=== PATIENT | female | born 1975 | race Caucasian/White ===

== ENCOUNTER 2021-07-13 14:18 | Outpatient (REF) | payer OTHER, SELFPAY ==
[2021-07-13 14:25] VITALS: BP 121/74; PULSE 89; RESP 16; TEMP 36.1; O2SAT 97
[2021-07-13 14:26] VITALS: BMI 20.2
== END 2021-07-13 14:19 | disposition home or self-care (01) ==
LOC: HO.MS 14:18
PROVIDERS: Visit Provider Ophthalmology
PROC: (CPT 66821; principal; 2021-07-13 14:50)
DX: H26.491 Other secondary cataract, right eye (principal); Z96.1 Presence of intraocular lens; H11.133 Conjunctival pigmentations, bilateral; H17.89 Other corneal scars and opacities; Z79.899 Other long term (current) drug therapy; Z88.8 Allergy status to other drugs, medicaments and biological substances
CPT/HCPCS: 66821